=== PATIENT | male | born 1960 | race Caucasian/White ===

== ENCOUNTER 2024-11-11 12:31 | Emergency (ER) | payer MEDICARE, MEDICAID ==
[~2024-11-11] VITALS: Ht 170.2 cm; Wt 70.0 kg
[~2024-11-11 12:31] MED LIST: CARV3.1242 MT; LINA5TAB PO; LISI-186 PO; METF-416 MT; MONT-39 PO; NINT100C PO
[2024-11-11 12:41] VITALS: O2SAT 100
[2024-11-11 14:07] LABS: BASOPHILS % 0.7 % (0.0-2.0); DIFFERENTIAL COMMENT 0; EOSINOPHILS % 3.3 % (0.0-5.0); HEMATOCRIT. 39.1 % (42.0-52.0); HEMOGLOBIN. 12.6 g/dL (14.0-18.0); LYMPHOCYTES % 33.5 % (20.0-50.0); MEAN CORPUSCULAR HGB CONC 32.1 g/dL (31.0-37.0); MEAN CORPUSCULAR VOLUME 87.1 fL (80.0-94.0); MEAN PLATELET VOLUME 10.2 fl (7.4-10.4); MONOCYTES % 5.5 % (2.0-8.0); PLATELET 134 x1000/uL (130-400); RED BLOOD CELL COUNT 4.49 mill/uL (4.7-6.1); RED CELL DISTRIBUTION WIDTH 21.1 % (11.6-14.6); WHITE BLOOD COUNT 6.6 x1000/uL (4.5-11.0)
[2024-11-11 14:22] LABS: CHLORIDE 98 mEq/L (98-107); POTASSIUM 3.7 mEq/L (3.5-5.1); SODIUM 135 mEq/L (136-145)
[2024-11-11 14:23] LABS: CARBON DIOXIDE 30 mEq/L (21-32)
[2024-11-11 14:24] LABS: CALCIUM 8.8 mg/dL (8.7-10.4)
[2024-11-11 14:28] LABS: CREATININE 1.3 mg/dL (0.6-1.3); GLUCOSE 156 mg/dL (70-105); UREA NITROGEN BLOOD 22 mg/dL (9-23)
[2024-11-11 14:29] LABS: TROPONIN I HIGH SENSITIVITY 8 ng/L (3.0-53)
[2024-11-11 16:57] LABS: TROPONIN I HIGH SENSITIVITY 7 ng/L (3.0-53)
[2024-11-11 18:28] VITALS: BP 125/94; PULSE 94; RESP 17; TEMP 37.1; O2SAT 100
== END 2024-11-11 19:18 | disposition home or self-care (01) ==
LOC: ER 12:31
DX: R55 Syncope and collapse (principal); E11.9 Type 2 diabetes mellitus without complications; I10 Essential (primary) hypertension; Z88.6 Allergy status to analgesic agent; Z79.899 Other long term (current) drug therapy
CPT/HCPCS: 36415; 71045; 80048; 83880; 84484; 85025; 93005; 99285

== ENCOUNTER 2025-08-25 16:02 | Inpatient (IN) | payer MEDICARE, MEDICAID ==
[~2025-08-25] VITALS: Ht 172.7 cm; Wt 66.3 kg
[2025-08-25 17:18] LABS: BG BASE EXCESS -8.1 mmol/L (-2.0-3.0); BG CARBOXYHEMOGLOBIN 1.1 % (0.5-1.5); BG DEOXYHEMOGLOBIN 4.8 % (0.0-5.0); BG FLOW(L/min) 5.00 L/min; BG FRACTION INSPIRED OXYGEN 40; BG HCO3 ACT 16.4 mmol/L (21.0-28.0); BG METHEMOGLOBIN 0.3 % (0.5-1.5); BG OXYGEN SATURATION 95.1 % (94.0-98.0); BG OXYHEMOGLOBIN 93.8 % (94.0-98.0); BG PCO2 31.1 mmHg (35.0-48.0); BG PH 7.341 (7.350-7.450); BG PO2 80.7 mmHg (83.0-108.0); BG SAMPLE SITE RIGHT RADIAL; BG TOTAL HEMOGLOBIN 13.0 g/dL (13.5-17.5); BG VENT MODE NASAL CANNULA
[2025-08-25 17:27] LABS: BASOPHILS % 0.4 % (0.0-2.0); EOSINOPHILS % 1.0 % (0.0-5.0); HEMATOCRIT. 40.0 % (42.0-52.0); HEMOGLOBIN. 12.7 g/dL (14.0-18.0); LYMPHOCYTES % 29.1 % (20.0-50.0); MEAN PLATELET VOLUME 9.9 fl (7.4-10.4); MONOCYTES % 5.2 % (2.0-8.0); NEUTROPHILS % 64.3 % (40.0-76.0); PLATELET 223 x1000/uL (130-400); RED BLOOD CELL COUNT 4.23 mill/uL (4.7-6.1); RED CELL DISTRIBUTION WIDTH 18.9 % (11.6-14.6)
[2025-08-25 17:41] LABS: TROPONIN I HIGH SENSITIVITY 10 ng/L (3.0-53)
[2025-08-25 17:54] LABS: CREATININE 1.6 mg/dL (0.6-1.3)
[2025-08-25 17:55] LABS: UREA NITROGEN BLOOD 16 mg/dL (9-23)
[2025-08-25 17:56] LABS: ASPARTATE AMINOTRANSFERASE 45 IU/L (<34)
[2025-08-25 17:57] LABS: BILIRUBIN DIRECT 0.4 mg/dL (<=3.0); BILIRUBIN TOTAL 0.9 mg/dL (0.1-1.0); PROTEIN TOTAL 7.4 g/dL (6.0-8.3)
[2025-08-25] MEDS: CEFTRIAXONE 1GM/50ML 50 ML IV ONE (19:20)
[2025-08-25] MEDS: AZITHROMYCIN 500MG/250ML 250 ML IV SCH (19:51)
[2025-08-25] MEDS: ALBUTEROL (0.083%) 2.5MG/3ML NEB HHN ONE (20:39)
[2025-08-25 20:40] VITALS: PULSE 93; RESP 22; O2SAT 98
[2025-08-25] MEDS ORDERED: IPRATROPIUM/ALBUTEROL 0.5-3(2.5)MG/3ML NEB HHN PRN (21:45)
[2025-08-25] MEDS ORDERED: ONDANSETRON HCL 4MG/2ML INJ IV PRN (21:45)
[2025-08-25] MEDS ORDERED: ACETAMINOPHEN 325MG TABLET PO PRN ×2 (21:45)
[2025-08-25 22:00] VITALS: BP 95/73; PULSE 91; RESP 18; TEMP 36.3; O2SAT 94
[2025-08-25 22:06] VITALS: BP 95/73; PULSE 91; RESP 16; TEMP 36.3068
[2025-08-25] MEDS ORDERED: DEXTROSE 50% WATER 50ML SYRINGE IV PRN (23:00)
[2025-08-25] MEDS: METHYLPREDNISOLONE SOD SUCC 40MG/ML (ACT-O-VIAL) IV SCH (23:22)
[2025-08-25] MEDS: SODIUM ZIRCONIUM CYCLOSILICATE 10GM/PACKET PO NR (23:22)
[2025-08-25] MEDS: SODIUM CHLORIDE 0.9% 1,000 ML IV SCH (23:22)
[2025-08-26] VITALS (9 sets, daily range): BP systolic 131–157; BP diastolic 91–108; PULSE 94–113; RESP 12–20; TEMP 36.3–36.6; O2SAT 91–100
[2025-08-26 01:14] LABS: CREATININE 1.4 mg/dL (0.6-1.3)
[2025-08-26 01:15] LABS: UREA NITROGEN BLOOD 14.0 mg/dL (9-23)
[2025-08-26 01:16] LABS: TROPONIN I HIGH SENSITIVITY 51 ng/L (3.0-53)
[2025-08-26 01:50] LABS: CLARITY URINE CLEAR (CLEAR); COLOR URINE YELLOW (YELLOW); GLUCOSE URINE 3+ (NEGATIVE); KETONES URINE NEGATIVE (NEGATIVE); LEUKOCYTE ESTERASE URINE NEGATIVE (NEGATIVE); NITRITE URINE NEGATIVE (NEGATIVE); OCCULT BLOOD URINE NEGATIVE (NEGATIVE); PH URINE 5.0 (4.5-8.0); PROTEIN URINE 1+ (NEGATIVE); SPECIFIC GRAVITY URINE 1.021 (1.005-1.030); UROBILINOGEN URINE 0.2 E.U./dL (0.2-1.0)
[2025-08-26 02:11] LABS: *AMPHETAMINES SCREEN URINE NEGATIVE (NEGATIVE)
[2025-08-26 02:12] LABS: *BARBITURATES SCREEN URINE NEGATIVE (NEGATIVE); *BENZODIAZEPINES SCREEN URINE NEGATIVE (NEGATIVE); *COCAINE SCREEN URINE NEGATIVE (NEGATIVE); CANNABINOID URINE SCREEN NEGATIVE (NEGATIVE); ECSTASY MDMA SCREEN URINE NEGATIVE (NEGATIVE); METHADONE URINE SCREEN NEGATIVE (NEGATIVE); OPIATES URINE SCREEN NEGATIVE (NEGATIVE); PHENCYCLIDINE URINE SCREEN NEGATIVE (NEGATIVE)
[2025-08-26 06:01] LABS: BACTERIA URINE NONE SEEN; RBC URINE 0-2 /hpf (0-2); SQUAMOUS EPITHELIAL CELL URINE NONE SEEN /lpf (RARE/1+); WBC URINE 0-2 /hpf (0-2)
[2025-08-26] MEDS: BLOOD SUGAR DIAGNOSTIC STRIP TEST SCH (06:23)
[2025-08-26 08:18] LABS: BASOPHILS % 0.2 % (0.0-2.0); EOSINOPHILS % 0.0 % (0.0-5.0); HEMATOCRIT. 37.3 % (42.0-52.0); HEMOGLOBIN. 12.1 g/dL (14.0-18.0); LYMPHOCYTES % 15.1 % (20.0-50.0); MEAN PLATELET VOLUME 9.8 fl (7.4-10.4); MONOCYTES % 0.8 % (2.0-8.0); NEUTROPHILS % 83.9 % (40.0-76.0); PLATELET 194 x1000/uL (130-400); RED BLOOD CELL COUNT 4.06 mill/uL (4.7-6.1); RED CELL DISTRIBUTION WIDTH 18.4 % (11.6-14.6)
[2025-08-26 08:21] LABS: TRIGLYCERIDE 52.0 mg/dL (0-150)
[2025-08-26 08:22] LABS: LDL CHOLESTEROL 83.0 mg/dL (5-100)
[2025-08-26 08:24] LABS: T4 FREE 1.25 ng/dL (0.89-1.76)
[2025-08-26 08:25] LABS: TROPONIN I HIGH SENSITIVITY 54 ng/L (3.0-53)
[2025-08-26] MEDS: ENOXAPARIN 40MG/0.4ML SYR SUBCUT SCH (08:28)
[2025-08-26] MEDS: INSULIN LISPRO 100 UNITS/ML SUBCUT SCH (08:30)
[2025-08-26] MEDS: IPRATROPIUM/ALBUTEROL 0.5-3(2.5)MG/3ML NEB HHN SCH (09:39)
[2025-08-26] MEDS ORDERED: CLONIDINE 0.2MG TABLET PO PRN (10:00)
[2025-08-26] MEDS: CEFTRIAXONE 1GM/50ML 50 ML IV SCH (20:38)
[2025-08-26] MEDS: AZITHROMYCIN 500 MG in DEXT 5% WATER 250 ML IV SCH (20:52)
[2025-08-26] MEDS ORDERED: AZITHROMYCIN 250 MG in DEXT 5% WATER 250 ML IV SCH (21:00)
[2025-08-26 21:21] LABS: TROPONIN I HIGH SENSITIVITY 38 ng/L (3.0-53)
[2025-08-27] VITALS (9 sets, daily range): BP systolic 105–155; BP diastolic 55–108; PULSE 84–116; RESP 18–20; TEMP 36.2–36.7; O2SAT 88–96
[2025-08-27 01:12] LABS: ASPARTATE AMINOTRANSFERASE 48 IU/L (<34); BILIRUBIN DIRECT 0.3 mg/dL (<=3.0); BILIRUBIN TOTAL 0.5 mg/dL (0.1-1.0); PROTEIN TOTAL 6.6 g/dL (6.0-8.3)
[2025-08-27 07:29] LABS: PLATELET 179 x1000/uL (130-400); RED BLOOD CELL COUNT 3.75 mill/uL (4.7-6.1); RED CELL DISTRIBUTION WIDTH 17.9 % (11.6-14.6)
[2025-08-27 07:47] LABS: TROPONIN I HIGH SENSITIVITY 35 ng/L (3.0-53)
[2025-08-27 07:55] LABS: CREATININE 1.0 mg/dL (0.6-1.3)
[2025-08-27 07:56] LABS: UREA NITROGEN BLOOD 15 mg/dL (9-23)
[2025-08-27 07:58] LABS: PHOSPHORUS 3.0 mg/dL (2.5-4.9)
[2025-08-27] MEDS: INSULIN GLARGINE 100 UNITS/ML SUBCUT SCH (09:32)
[2025-08-27 11:47] LABS: TROPONIN I HIGH SENSITIVITY 34 ng/L (3.0-53)
[2025-08-27] MEDS ORDERED: IPRATROPIUM BROMIDE (0.02%) 0.5MG/2.5ML NEB HHN PRN (15:00)
[2025-08-27] MEDS: INSULIN LISPRO 100 UNITS/ML SUBCUT SCH (17:25)
[2025-08-27] MEDS: MAGNESIUM 2 G PREMIX 50 ML IV NR (17:31)
[2025-08-27] MEDS: IPRATROPIUM BROMIDE (0.02%) 0.5MG/2.5ML NEB HHN SCH (20:38)
[2025-08-28] VITALS (11 sets, daily range): BP systolic 115–150; BP diastolic 72–113; PULSE 101–111; RESP 17–21; TEMP 35.9–37.1; O2SAT 88–99
[2025-08-28] MEDS ORDERED: AMOX1TAB16 MT (08:33)
[2025-08-28] MEDS ORDERED: AZIT250T12 PO (08:33)
[2025-08-28] MEDS ORDERED: IPRA3AMP31 NEB (08:33)
[2025-08-28] MEDS: LISINOPRIL 5MG TABLET PO SCH (08:45)
[2025-08-28] MEDS: CARVEDILOL 3.125 MG TABLET PO NR (10:06)
[2025-08-28] MEDS: LISINOPRIL 10MG TABLET PO SCH (13:17)
[2025-08-28] MEDS: INSULIN GLARGINE 100 UNITS/ML SUBCUT SCH (13:18)
[2025-08-28] MEDS: CARVEDILOL 3.125 MG TABLET PO SCH (21:19)
[2025-08-29] VITALS: BP 102/70; PULSE 108; RESP 18; TEMP 36.3; O2SAT 92
[2025-08-29 03:21] VITALS: PULSE 96; RESP 18; O2SAT 94
[2025-08-29 04:00] VITALS: BP 124/97; PULSE 93; RESP 20; TEMP 36.3; O2SAT 93
[2025-08-29 08:00] VITALS: BP 139/89; PULSE 89; RESP 18; TEMP 36.4; O2SAT 95
[2025-08-29 09:07] VITALS: PULSE 96; RESP 20
[2025-08-29 09:09] VITALS: PULSE 89
== END 2025-08-29 11:10 | disposition home health service (06) | DRG 189 ==
LOC: ER 16:02 → 6WST 19:55 → EDBEDREQ 19:59 → EDBEDREQTM 19:59 → EDBEDREQ 20:00 → ENRESERV 21:02
PROVIDERS: ADMIT Internal Medicine; ATTEND Internal Medicine
DX: J96.21 Acute and chronic respiratory failure with hypoxia (principal); J18.9 Pneumonia, unspecified organism; I50.22 Chronic systolic (congestive) heart failure; I13.0 Hypertensive heart and chronic kidney disease with heart failure and stage 1 through stage 4 chronic kidney disease, or unspecified chronic kidney disease; I95.9 Hypotension, unspecified; J44.0 Chronic obstructive pulmonary disease with (acute) lower respiratory infection; N17.9 Acute kidney failure, unspecified; E11.22 Type 2 diabetes mellitus with diabetic chronic kidney disease; N18.9 Chronic kidney disease, unspecified; J44.1 Chronic obstructive pulmonary disease with (acute) exacerbation; J84.10 Pulmonary fibrosis, unspecified; E87.5 Hyperkalemia; Z79.899 Other long term (current) drug therapy; Z99.81 Dependence on supplemental oxygen; Z79.84 Long term (current) use of oral hypoglycemic drugs; Z87.891 Personal history of nicotine dependence
CPT/HCPCS: 36415; 36600; 71045; 80048; 80061; 80076; 80305; 81003; 82375; 82550; 82805; 82962; 83036; 83605; 83735; 83880; 84100; 84145; 84439; 84443; 84484; 85025; 85027; 85379; 87070; 87340; 93005; 93970; 94070; 94640; 94664; 96365; 96368; 99291; A4606; J0456; J0696; J1650; J1815; J2919; J3475; J7030; J7060